=== PATIENT | male | born 1990 | race Caucasian/White ===

== ENCOUNTER 2018-12-30 10:04 | Emergency (ER) | payer OTHER ==
[~2018-12-30] VITALS: Ht 195.6 cm; Wt 114.0 kg
[~2018-12-30 10:04] MED LIST: AMOXICILLIN500 MG PO; BACTRIM DS TAB1 EACH PO; BUPROPION XL150 MG PO; CEPHALEXIN500 MG PO; CILOXAN5 ML OS; CIPROFLOXACIN500 MG PO; PERCOCET 7.5-31 EACH PO; PROZAC10 MG PO; SERTRALINE HCL100 MG PO
== END 2018-12-30 10:20 | disposition home or self-care (01) ==
LOC: ED 10:04
DX: R06.7 Sneezing (principal); R05 Cough

== ENCOUNTER 2019-02-26 14:39 | Emergency (ER) | payer OTHER ==
[~2019-02-26] VITALS: Ht 195.6 cm; Wt 113.9 kg
--- OUTSIDE RECORDS SUMMARY | 2019-02-26 14:42 | XMS ---
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 No recent Security Events currently on file [place] MET [place] [facility] [place] [facility] Primary [facility] Current BEHAVIORAL HEALTH PHONE: Unknown [facility] Other 03/06/2017-Current [facility] PHONE: Unknown Guidelines [email or web address] Date: 12/31/2018 Care Coordination: Currently engaged in mental health services with [employer].\T\nbsp; Please contact [employer] with mental health concerns.\T\nbsp; [place]: [phone]\T\ nbsp; [place]: [phone]. E.D. VISIT COUNT (12 MO.) [address] [facility] TOTAL 3 NOTE: Visits indicate total known visits. 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
== END 2019-02-26 15:40 | disposition left against medical advice (07) ==
LOC: ED 14:39
DX: M79.672 Pain in left foot (principal); Z53.21 Procedure and treatment not carried out due to patient leaving prior to being seen by health care provider

== ENCOUNTER 2021-01-27 08:53 | Emergency (ER) | payer OTHER ==
[~2021-01-27] VITALS: Ht 195.6 cm; Wt 90.7 kg
[2021-01-27] MEDS ORDERED: ZOLOFT100 MG PO (09:16)
[2021-01-27] MEDS ORDERED: PRAZOSIN HCL5 MG PO (09:19)
== END 2021-01-27 09:30 | disposition home or self-care (01) ==
LOC: ED 08:53
DX: Z76.0 Encounter for issue of repeat prescription (principal); Z79.899 Other long term (current) drug therapy; Z86.14 Personal history of Methicillin resistant Staphylococcus aureus infection
CPT/HCPCS: 99281

== ENCOUNTER 2021-06-13 10:12 | Emergency (ER) | payer OTHER ==
[~2021-06-13] VITALS: Ht 195.6 cm; Wt 104.0 kg
[~2021-06-13 10:12] MED LIST changes: +PRAZOSIN HCL5 MG PO; +ZOLOFT100 MG PO
--- OUTSIDE RECORDS SUMMARY | 2021-06-13 10:18 | XMS ---
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 ED/UCC VISIT TRACKING (12 MO.) 06/13/2021 10:12 [facility] TYPE: Emergency COMPLAINT: - HEAD INJ 06/12/2021 15:38 [facility] TYPE: Emergency COMPLAINT: - HEAD INJ, LEFT WITHOUT BEING SEEN 01/27/2021 08:54 [facility] TYPE: Emergency COMPLAINT: - MEDICATION REFILL DIAGNOSES: - Other rn long term care (current) drug therapy - Encounter for issue of repeat prescription - Personal history of Methicillin resistant Staphylococcus aureus infection INPATIENT VISIT TRACKING (12 MO.) No inpatient visits to display in this time frame [email or web address]
[2021-06-13] MEDS ORDERED: SERTRALINE HCL100 MG PO (10:41)
[2021-06-13] MEDS ORDERED: BUPROPION XL300 MG PO (10:42)
== END 2021-06-13 12:44 | disposition home or self-care (01) ==
LOC: ED 10:12
DX: S09.90XA Unspecified injury of head, initial encounter (principal); W20.8XXA Other cause of strike by thrown, projected or falling object, initial encounter; Y92.811 Bus as the place of occurrence of the external cause; Y99.0 Civilian activity done for income or pay; Z79.899 Other long term (current) drug therapy
CPT/HCPCS: 70450; 99283-25